=== PATIENT | male | born 1965 | race Two or more races ===

== ENCOUNTER 2017-05-19 20:39 | Inpatient (IN) | payer SELFPAY ==
[2017-05-19] MEDS ORDERED: TORADOL 60 MG VIAL IM ONE (21:13)
[2017-05-19] MEDS ORDERED: TORADOL 60 MG VIAL ONE (21:15)
--- NOTE | 2017-05-19 21:29 | DR.GENAD ---
HPI - PCP Primary Care Physician: RACHEL - HPI Comment HPI Comment: OBVIOUS DEFORMITY PRESENT. - Complaint/Symptoms Chief Complaint Doctors Comments: RIGHT ANKLE AND FOOT INJURY AT HOME TONIGHT. FELL ON THE STEPS. Chief Complaint:: PATIENT FELL ON STEPS AT HOME AND HURT RIGHT FOOT - Nurses notes reviewed Nurses Notes Review: Yes - Source History Provided: Patient, Family Member - Mode of Arrival Mode of Arrival: Wheelchair - Timing Onset of Chief Complaint: 05/19/17 Came on: Suddenly - Duration Duration: Constant Duration: Hours - Severity Severity: Moderate PMH - PMH Past Medical History: No Past Surgical History: No - Family History History of Family Medical Conditions: No - Social History Alcohol Use: DAILY Do you use any recreational Drugs:: No Lives With: Family Lives Where: Home - infectious screening In the last 2 months have you had wt loss of >10#?: NO Have you had fever, night sweats or hemotysis?: No Have you traveled outside the country in the last 6 months?: No Isolation: Standard ROS - Review of Systems Constitutional: No Symptoms Reported Eyes: No Symptoms Reported ENTM: No Symptoms Reported Respiratoy: No Symptoms Reported Cardiovascular: No Symptoms Reported Gastrointestinal/Abdominal: No Symptoms Reported Genitourinary: No Symptoms Reported Neurological: No Symptoms Reported Musculoskeletal: Right, Ankle, Foot Integumentary: Bruises Hematologic/Lymphatic: No Symptoms Reported Endocrine: No Symptoms Reported All Other Systems: Reviewed and Negative PE - Vital Signs Vitals: Temperature 98.0 F Pulse Rate 88 Respiratory Rate 20 Blood Pressure 143/80 O2 Sat by Pulse Oximetry 100 - General Limitations: No Limitations General Appearance: Alert - Head Head Exam: Normal Inspection - Eyes Eye exam: Normal Appearance - ENT ENT Exam: Normal External Ear Exam External Ear Exam: Normal External Inspection TM/Canal Exam: Bilateral Normal Nose Exam: Normal Nose Exam Mouth Exam: Normal Inspection Throat Exam: Normal Inspection - Neck Neck Exam: Normal Inspection - Chest Chest Inspection: Symmetric Chest Wall Rise - Respiratory Respiratory Exam: Normal Lung Sounds Bilat Respiratory Exam: Bilateral Clear to Auscultation - Cardiovascular Cardiovascular Exam: Regular Rate, Normal Rhythm, Normal Heart Sounds - Abdominal Exam Abdominal Exam: Normal Bowel Sounds, Soft. negative: Tenderness - Extremities Extremities Exam: Tenderness (RT ANKLE AND FOOT), Joint Swelling (RT ANKLE AND FOOT.) - Back Back Exam: Normal Inspection - Neurologic Neurological Exam: Alert, Oriented X3 - Psychiatric Psychiatric Exam: Other (ALCOHOL SCENT ON BREATH.) - Skin Skin Exam: Erythema MDM - Additional Information Additional Information Obtained From: Family - Differential Diagnosis Differential Diagnosis: FRACTURE, CONTUSION, SPRAIN RT ANKLE AND FOOT. Course - Treatment Treatment: SEE ORDERS. MEDS FOR PAIN GIVEN IN ED. - Consultation Consultation Comments: DISCUSS PATIENT WITH DR. MERIDA. HE WILL ADMIT PATIENT. DR. EASTMAN, ORTHO TO CONSULT. - Education/Counseling Education/Counseling: Patient, Education Educated On: Diagnosis ROR - Labs Reviewed Laboratory Results Reviewed?: Yes Result Diagrams: 05/19/17 23:34 05/19/17 23:34 - XRAY XRAY Interpreted by: Radiologist XRAY Findings: REPORT DISCUSS WITH PATIENT AND HIS FAMILLY. - EKG Rhythm: NSR (EKG NOTED.) - Diagnosis Discharge Problem: Alcohol use Trimalleolar fracture of ankle, closed Qualifiers: Encounter type: initial encounter Laterality: right Qualified Code(s): S82.851A - Displaced trimalleolar fracture of right lower leg, initial encounter for closed fracture Subluxation of ankle joint Qualifiers: Encounter type: initial encounter Laterality: right Qualified Code(s): S93.01XA - Subluxation of right ankle joint, initial encounter - Discharge Plan Disposition: ADMITTED INPATIENT Condition: Stable - Follow ups/Referrals - Instructions
--- NOTE | 2017-05-19 22:10 | RAD ---
HISTORY: 51-year-old male status post fall down stairs with right ankle pain. Study: Three views right ankle. Comparison: None. Findings: Comminuted trimalleolar fracture with lateral subluxation of the tibiotalar joint with expected surro unding edema. Remaining imaged osseous structures are intact and joint spaces are congruent. Vascular calcifications are present. IMPRESSION: 1. Comminuted trimalleolar fracture with lateral subluxation of the tibiotalar joint and surrounding edema. Reported By:
[2017-05-19 23:44] LABS: BASOPHILS # (AUTO) 0.1 X10^3/uL (0.0-0.1); BASOPHILS % (AUTO) 1.3 % (0.2-1.0); EOSINOPHILS % (AUTO) 0.5 % (0.9-2.9); HEMATOCRIT 31.4 % (42.0-54.0); HEMOGLOBIN 11.2 g/dL (13.5-18.0); LYMPHOCYTES # (AUTO) 1.9 X10^3/uL (1.3-2.9); LYMPHOCYTES % (AUTO) 33.1 % (21.0-51.0); MEAN CORPUSCULAR HEMOGLOBIN 37.7 pg (27.0-34.0); MEAN CORPUSCULAR HGB CONC 35.6 g/dL (33.0-35.0); MEAN CORPUSCULAR VOLUME 105.9 fL (80.0-100.0); MEAN PLATELET VOLUME 9.3 fL (7.4-11.0); MONOCYTES # (AUTO) 0.4 x10^3/uL (0.3-0.8); MONOCYTES % (AUTO) 7.5 % (0.0-13.0); NEUTROPHILS # (AUTO) 3.4 x10^3/uL (2.2-4.8); NEUTROPHILS % (AUTO) 57.6 % (42.0-75.0); PLATELET COUNT 81 X10^3/uL (150.0-450.0); RED BLOOD COUNT 2.96 X10^6/uL (4.7-6.0); RED CELL DISTRIBUTION WIDTH 12.7 % (11.6-16.5); WHITE BLOOD COUNT 5.8 X10^3/uL (3.6-10.0)
[2017-05-19] MEDS: NS 1000 ML 1,000 ML IV SCH (23:53)
[2017-05-19 23:59] LABS: ALANINE AMINOTRANSFERASE 60 Units/L (12-78); ALBUMIN 3.5 g/dL (3.4-5.0); ALKALINE PHOSPHATASE 92 Units/L (46-116); ASPARTATE AMINO TRANSFERASE 98 Units/L (15-37); BLOOD ALCOHOL 262 mg/dL (0-19.9); BLOOD UREA NITROGEN 5 mg/dL (7-18); CALCIUM 8.1 mg/dL (8.5-10.1); CARBON DIOXIDE 22.9 mmol/L (21-32); CHLORIDE 95 mmol/L (98-107); CREATININE 0.65 mg/dL (0.70-1.30); SODIUM 133 mmol/L (136-145); TOTAL PROTEIN 7.7 g/dL (6.4-8.2); eGFR BLACK RACES > 60 (>60); eGFR NON BLACK RACES > 60 (>60)
[2017-05-20 00:04] LABS: PLATELET MORPHOLOGY COMMENT NORMAL (NORMAL)
[2017-05-20] MEDS ORDERED: MORPHINE SULFATE INJ 4 MG IVP ONE (00:05)
[2017-05-20] MEDS ORDERED: ZOFRAN INJ 4 MG VIAL IVP ONE (00:05)
[2017-05-20] MEDS ORDERED: ZOFRAN INJ 4 MG VIAL ONE (00:07)
[2017-05-20] MEDS ORDERED: MORPHINE SULFATE INJ 4 MG ONE (00:07)
[2017-05-20 02:06] VITALS: BMI 21.6
[2017-05-20] MEDS ORDERED: ZOFRAN INJ 4 MG VIAL IVP PRN (02:22)
--- NOTE | 2017-05-20 03:08 | RAD ---
HISTORY: 51-year-old male, preoperative examination. Study: Frontal view of the chest. Comparison: None. Findings: The trachea is midline. The cardiac silhouette is unremarkable. The lungs are clear without focal c onsolidation, effusion or pneumothorax. Soft tissues are unremarkable. Osseous structures are unrema rkable. IMPRESSION: 1. No acute cardiopulmonary disease. Reported By:
--- NOTE | 2017-05-20 03:19 | RAD ---
HISTORY: 51-year-old male status post reduction of fracture dislocation right ankle. Study: Frontal lateral views of the right ankle. Comparison: Right ankle radiographs 05/19/2017. Findings: Successful interval reduction of midfoot dislocation with re-demonstration of trimalleolar fracture a nd surrounding edema. IMPRESSION: 1. Successful reduction of midfoot dislocation. Reported By:
[2017-05-20] MEDS: MORPHINE SULFATE INJ 2 MG INJ IVP PRN ×3 (11:15→18:04)
[2017-05-20] MEDS: NS 1000 ML 1,000 ML IV SCH ×3 (11:57→20:30)
--- NOTE | 2017-05-20 15:10 | DR.H&P ---
H&P - History & Physical for Day of: H&P Date: 05/20/17 - Chief Complaint Chief Complaint: FALL RIGHT ANKLE PAIN - Allergies Allergies/Adverse Reactions: Allergies Allergy/AdvReac Type Severity Reaction Status Date / Time No Known Drug Allergies Allergy Verified 05/19/17 21:11 - History of Present Illness History of Present Illness: 51 HM ER ADMISSION WITH RIGHT ANKLE FRACTURE REQUIRING REDUCTION. PT ADMITTED FOR PAIN CONTROL AND ORTHO CONSULT. PT DENIES ANY PMH. PT STATES HE DRINKS ETOH OCCASSIONALLY - Past Medical History Past Medical History: denies: CHF, Coronary Artery Disease, Diabetes, Hypertension - Past Surgical History Surgical History: Unknown - Social History Does patient currently use any type of tobacco product: Yes Have you used tobacco products in the last 12 months: Yes Type of Tobacco Use: Cigarettes Alcohol Use: DAILY Drug Use: None - Medications Home Medications: NK [NK] 05/20/17 [History Confirmed 05/20/17] - Review of Systems Constitutional: No Symptoms Reported Eyes: No Symptoms Reported ENT: No Symptoms Reported Respiratory: No Symptoms Reported Cardiovascular: No Symptoms Reported Gastrointestinal: Nausea Genitourinary: No Symptoms Reported Musculoskeletal: Leg Pain, Foot Pain Skin: No Symptoms Reported Neurological: No Symptoms Reported - Physical Exam Vital Signs: Temperature 99.1 F Pulse Rate [Right Brachial] 72 Pulse Rate 88 Respiratory Rate 18 Blood Pressure [Right Arm] 153/74 Blood Pressure 143/80 O2 Sat by Pulse Oximetry 99 Oriented: Normal Eyes: Normal Ear: Normal Nose: Normal Throat: Normal Respiratory: Clear Throughout : Normal Auscultation: Bowel Sounds: Normal Palpation: Normal Tenderness: Normal Skin: Tender, Bruising Musculoskeletal: Right, Ankle, Foot Psychiatric: Anxiety Speech Pattern: Clear, Appropriate - Assessment/Plan (1) Subluxation of ankle joint Qualifiers: Encounter type: initial encounter Laterality: right Qualified Code(s): S93.01XA - Subluxation of right ankle joint, initial encounter Status: Acute Plan: PAIN CONTROL, ORTHO CONSULT (2) Trimalleolar fracture of ankle, closed Qualifiers: Encounter type: initial encounter Laterality: right Qualified Code(s): S82.851A - Displaced trimalleolar fracture of right lower leg, initial encounter for closed fracture Status: Acute
--- NOTE | 2017-05-20 16:37 | CT ---
CT right ankle without contrast Indication: Post reduction right ankle fracture Comparison: 05/20/2017 radiograph and 05/19/2017 radiograph. Technique: Helical images through the right ankle without contrast. Coronal and sagittal reformats pr ovided Findings: There is mild midfoot degenerative change of the talonavicular joint. Calcaneus is intact. Sinus tarsi fat is preserved. There is oblique comminuted lateral malleolus fracture and comminuted medial malleolus fracture displ aced caudally. The distal fibula is displaced laterally at the tibiotalar joint is laterally subluxed see coronal image 26. This is compatible with either eversion type injury. There is posterior malleo renny/STIR shows fracture seen on sagittal image 27 with posterior subluxation of the tibiotalar joint as well. Osteochondral fragments are seen in the anterior joint space and lateral gutter. Talar dome appears intact. Intraarticular extension of both the medial malleolus posterior malleolus fractures t o the tibial plafond noted. The fracture fibula metaphysis impacts on the lateral talar dome on coron al image 22. Within the limits of CT, the extensor tendons, Achilles tendons and peroneal tendons appear intact. F lexor tendons are intact, with the posterior tibialis tendon approaches fracture sites. There is no c urrent impingement convincingly demonstrated. Anterior talofibular ligament is indistinct, possibly t orn. Presumably the tibia fibular ligaments are disrupted. Deltoid ligament injury cannot be excluded . Impression: 1. Comminuted trimalleolar fracture as above. 2. Persistent lateral and posterior subluxation of the talus in relation to the tibia. Scattered intr a-articular fracture fragments noted, with the fibula metaphysis fracture impacting lateral talar dom e currently. Reported By:
[2017-05-20] MEDS: LIBRIUM PO SCH (20:31)
[2017-05-20] MEDS ORDERED: LIBRIUM PO PRN (21:00)
[2017-05-20] MEDS: PHENERGAN INJ 25 MG IV PRN (23:13)
[2017-05-21] MEDS: NS 1000 ML 1,000 ML IV SCH ×3 (02:54→20:14)
[2017-05-21] MEDS: MORPHINE SULFATE INJ 2 MG INJ IVP PRN ×3 (05:58→19:34)
[2017-05-21 06:09] LABS: BASOPHILS # (AUTO) 0.1 X10^3/uL (0.0-0.1); EOSINOPHILS # (AUTO) 0.1 x10^3/uL (0.0-0.2); EOSINOPHILS % (AUTO) 1.1 % (0.9-2.9); HEMATOCRIT 29.6 % (42.0-54.0); HEMOGLOBIN 10.6 g/dL (13.5-18.0); LYMPHOCYTES # (AUTO) 1.3 X10^3/uL (1.3-2.9); LYMPHOCYTES % (AUTO) 24.5 % (21.0-51.0); MEAN CORPUSCULAR HEMOGLOBIN 37.7 pg (27.0-34.0); MEAN CORPUSCULAR HGB CONC 35.8 g/dL (33.0-35.0); MEAN CORPUSCULAR VOLUME 105.3 fL (80.0-100.0); MEAN PLATELET VOLUME 10.4 fL (7.4-11.0); MONOCYTES # (AUTO) 0.7 x10^3/uL (0.3-0.8); MONOCYTES % (AUTO) 13.2 % (0.0-13.0); NEUTROPHILS # (AUTO) 3.3 x10^3/uL (2.2-4.8); NEUTROPHILS % (AUTO) 60.2 % (42.0-75.0); PLATELET COUNT 83 X10^3/uL (150.0-450.0); RED BLOOD COUNT 2.81 X10^6/uL (4.7-6.0); RED CELL DISTRIBUTION WIDTH 13.1 % (11.6-16.5); WHITE BLOOD COUNT 5.4 X10^3/uL (3.6-10.0)
[2017-05-21 06:23] LABS: ALANINE AMINOTRANSFERASE 49 Units/L (12-78); ALBUMIN 3.3 g/dL (3.4-5.0); ALKALINE PHOSPHATASE 92 Units/L (46-116); ASPARTATE AMINO TRANSFERASE 65 Units/L (15-37); BLOOD UREA NITROGEN 4 mg/dL (7-18); CALCIUM 8.7 mg/dL (8.5-10.1); CARBON DIOXIDE 30.2 mmol/L (21-32); CHLORIDE 98 mmol/L (98-107); COR CA(FOR HYPOALB) 9.3 mg/dL (8.5-10.1); CREATININE 0.63 mg/dL (0.70-1.30); SODIUM 136 mmol/L (136-145); TOTAL PROTEIN 7.5 g/dL (6.4-8.2); eGFR BLACK RACES > 60 (>60); eGFR NON BLACK RACES > 60 (>60)
[2017-05-21] MEDS ORDERED: K-LYTE EFFERVESCENT PO PRN (06:30)
[2017-05-21] MEDS ORDERED: K-RIDER 10 MEQ/NS 100 ML 10 MEQ/100 ML BAG IV PRN (06:30)
[2017-05-21] MEDS ORDERED: MAG-OX TAB PO PRN (06:30)
[2017-05-21] MEDS ORDERED: POTASSIUM CHLORIDE LIQ 20 MEQ UDC PO PRN (06:30)
[2017-05-21] MEDS ORDERED: MAGNESIUM SULFATE 1 GM/100 mL PREMIX 1 GM/100 ML BAG IV PRN (06:30)
[2017-05-21 06:42] LABS: HYPOCHROMASIA 1+; PLATELET MORPHOLOGY COMMENT NORMAL (NORMAL)
[2017-05-21] MEDS: POTASSIUM CHL 60 MEQ/NS 0.45% 500 ML IV PRN (06:46)
[2017-05-21] MEDS: POTASSIUM CHL 40 MEQ/NS 0.45% 500 ML IV PRN (06:55)
[2017-05-21] MEDS: LIBRIUM PO SCH ×2 (08:58→20:14)
[2017-05-21] MEDS: TYLENOL 325 MG TAB PO PRN (20:44)
[2017-05-22] MEDS: NS 1000 ML 1,000 ML IV SCH ×3 (00:20→12:21)
[2017-05-22] MEDS: MORPHINE SULFATE INJ 2 MG INJ IVP PRN ×2 (01:20→08:46)
[2017-05-22] MEDS: NICOTINE PATCH TD SCH ×3 (04:49→08:49)
[2017-05-22 06:44] LABS: BASOPHILS # (AUTO) 0.1 X10^3/uL (0.0-0.1); BASOPHILS % (AUTO) 0.7 % (0.2-1.0); EOSINOPHILS % (AUTO) 0.1 % (0.9-2.9); HEMATOCRIT 27.2 % (42.0-54.0); HEMOGLOBIN 9.8 g/dL (13.5-18.0); LYMPHOCYTES # (AUTO) 1.3 X10^3/uL (1.3-2.9); LYMPHOCYTES % (AUTO) 14.8 % (21.0-51.0); MEAN CORPUSCULAR HEMOGLOBIN 37.8 pg (27.0-34.0); MEAN CORPUSCULAR HGB CONC 35.9 g/dL (33.0-35.0); MEAN CORPUSCULAR VOLUME 105.3 fL (80.0-100.0); MONOCYTES # (AUTO) 1.1 x10^3/uL (0.3-0.8); MONOCYTES % (AUTO) 12.8 % (0.0-13.0); NEUTROPHILS # (AUTO) 6.2 x10^3/uL (2.2-4.8); NEUTROPHILS % (AUTO) 71.6 % (42.0-75.0); PLATELET COUNT 81 X10^3/uL (150.0-450.0); RED BLOOD COUNT 2.58 X10^6/uL (4.7-6.0); RED CELL DISTRIBUTION WIDTH 12.7 % (11.6-16.5); WHITE BLOOD COUNT 8.7 X10^3/uL (3.6-10.0)
[2017-05-22 06:57] LABS: ALANINE AMINOTRANSFERASE 42 Units/L (12-78); ALBUMIN 3.4 g/dL (3.4-5.0); ALKALINE PHOSPHATASE 87 Units/L (46-116); ASPARTATE AMINO TRANSFERASE 52 Units/L (15-37); BLOOD UREA NITROGEN 5 mg/dL (7-18); CALCIUM 9.2 mg/dL (8.5-10.1); CARBON DIOXIDE 26.2 mmol/L (21-32); CHLORIDE 98 mmol/L (98-107); CREATININE 0.65 mg/dL (0.70-1.30); SODIUM 135 mmol/L (136-145); TOTAL PROTEIN 7.8 g/dL (6.4-8.2); eGFR BLACK RACES > 60 (>60); eGFR NON BLACK RACES > 60 (>60)
[2017-05-22 07:00] LABS: PLATELET MORPHOLOGY COMMENT NORMAL (NORMAL)
[2017-05-22] MEDS: MILK OF MAGNESIA PO SCH ×2 (08:46→20:44)
[2017-05-22] MEDS: COLACE CAP 100 MG PO SCH ×2 (08:46→20:43)
[2017-05-22] MEDS: LIBRIUM PO SCH ×3 (08:46→20:44)
[2017-05-22] MEDS: ATIVAN INJ 2 MG VIAL IVP PRN ×2 (11:30→23:57)
[2017-05-22] MEDS: ATIVAN INJ 2 MG VIAL IVP SCH (12:18)
[2017-05-22] MEDS: HALDOL INJ IM SCH (12:19)
[2017-05-22] MEDS: BENADRYL INJ 50 MG VIAL IV SCH (12:20)
[2017-05-22] MEDS: TYLENOL 325 MG TAB PO PRN (23:56)
[2017-05-23] MEDS: NS 1000 ML 1,000 ML IV SCH ×5 (00:32→22:52)
[2017-05-23] MEDS: LIBRIUM PO SCH ×4 (02:56→22:00)
[2017-05-23 06:19] LABS: BASOPHILS # (AUTO) 0.1 X10^3/uL (0.0-0.1); BASOPHILS % (AUTO) 1.1 % (0.2-1.0); EOSINOPHILS # (AUTO) 0.1 x10^3/uL (0.0-0.2); EOSINOPHILS % (AUTO) 1.2 % (0.9-2.9); HEMATOCRIT 26.5 % (42.0-54.0); HEMOGLOBIN 9.4 g/dL (13.5-18.0); LYMPHOCYTES # (AUTO) 1.6 X10^3/uL (1.3-2.9); LYMPHOCYTES % (AUTO) 21.2 % (21.0-51.0); MEAN CORPUSCULAR HGB CONC 35.6 g/dL (33.0-35.0); MEAN CORPUSCULAR VOLUME 106.7 fL (80.0-100.0); MEAN PLATELET VOLUME 10.5 fL (7.4-11.0); MONOCYTES # (AUTO) 1.1 x10^3/uL (0.3-0.8); MONOCYTES % (AUTO) 14.2 % (0.0-13.0); NEUTROPHILS # (AUTO) 4.7 x10^3/uL (2.2-4.8); NEUTROPHILS % (AUTO) 62.3 % (42.0-75.0); PLATELET COUNT 82 X10^3/uL (150.0-450.0); RED BLOOD COUNT 2.48 X10^6/uL (4.7-6.0); RED CELL DISTRIBUTION WIDTH 12.9 % (11.6-16.5); WHITE BLOOD COUNT 7.6 X10^3/uL (3.6-10.0)
[2017-05-23 06:28] LABS: PLATELET MORPHOLOGY COMMENT NORMAL (NORMAL)
[2017-05-23 06:44] LABS: ALANINE AMINOTRANSFERASE 33 Units/L (12-78); ALBUMIN 2.9 g/dL (3.4-5.0); ALKALINE PHOSPHATASE 81 Units/L (46-116); ASPARTATE AMINO TRANSFERASE 46 Units/L (15-37); BLOOD UREA NITROGEN 6 mg/dL (7-18); CALCIUM 8.6 mg/dL (8.5-10.1); CARBON DIOXIDE 22.5 mmol/L (21-32); CHLORIDE 101 mmol/L (98-107); COR CA(FOR HYPOALB) 9.5 mg/dL (8.5-10.1); CREATININE 0.56 mg/dL (0.70-1.30); SODIUM 138 mmol/L (136-145); TOTAL PROTEIN 7.2 g/dL (6.4-8.2); eGFR BLACK RACES > 60 (>60); eGFR NON BLACK RACES > 60 (>60)
[2017-05-23] MEDS: MILK OF MAGNESIA PO SCH ×2 (08:57→21:47)
[2017-05-23] MEDS: COLACE CAP 100 MG PO SCH ×2 (08:57→21:47)
[2017-05-23] MEDS: NICOTINE PATCH TD SCH (08:58)
[2017-05-23] MEDS: ATIVAN INJ 2 MG VIAL IVP PRN (08:58)
--- NOTE | 2017-05-23 09:19 | DR.CONSULT ---
Consult - Consultation for Day of: Date: 05/23/17 - Chief Complaint Chief Complaint: rt ankle fracture dislocation. pt a kco alcohol addiction/ abuse. he was drunk the day he presented to the ER. He and his son who accompined him to the ER report that he drinks hevily everyday. he is currently unemployed. I was consulted over the phone and it was a tri malleolar fracture. there was subluxation of the ankle joint. It was reduced in ER and the reduction was satisfactory. follow up CT showed a tri mall fracture. - Allergies Allergies/Adverse Reactions: Allergies Allergy/AdvReac Type Severity Reaction Status Date / Time No Known Drug Allergies Allergy Verified 05/19/17 21:11 - History of Present Illness History of Present Illness: he was evaluated by the anestesia team and he had full blown Delerium tremens and alcohol withdrawal. - Past Medical History Past Medical History: denies: CHF, Coronary Artery Disease, Diabetes, Hypertension - Past Surgical History Surgical History: Unknown - Social History Does patient currently use any type of tobacco product: Yes Have you used tobacco products in the last 12 months: Yes Type of Tobacco Use: Cigarettes Alcohol Use: DAILY Drug Use: None - Medications Home Medications: NK [NK] 05/20/17 [History Confirmed 05/20/17] - Physical Exam Vital Signs: Temperature 98.7 F Pulse Rate [Right Brachial] 105 Pulse Rate 88 Respiratory Rate 18 Blood Pressure [Left Arm] 174/90 Blood Pressure [Right Arm] 147/74 Blood Pressure 143/80 O2 Sat by Pulse Oximetry 100 - Plan Plan: ORIF tri malleolar fracture when he is cleared by anesthesia and medical for wong.
--- NOTE | 2017-05-23 12:24 | PCM.PROG ---
Progress Note - Progress Note for Day of Date: 05/23/17 - Subjective Subjective: posted for surgery tuesday as cleared by anesthesia and medical. - Past Medical Family Social History Allergies: Allergies No Known Drug Allergies Allergy (Verified 05/19/17 21:11) - Vital Signs and I&O's Vital Signs: Temperature 98.4 F Pulse Rate [Right Brachial] 96 Pulse Rate 88 Respiratory Rate 20 Blood Pressure [Left Arm] 157/84 Blood Pressure [Right Arm] 147/74 Blood Pressure 143/80 O2 Sat by Pulse Oximetry 92 Intake and Output: Intake & Output 05/21/17 05/22/17 05/23/17 05/24/17 11:59 11:59 11:59 11:59 Intake Total 2082 104 3061 Output Total 3389 0979 800 Balance -1300 -3930 2261 - Physical Exam Oriented: Normal Eyes: Normal Ear: Normal Nose: Normal Throat: Normal : Normal Auscultation: Bowel Sounds: Normal Tenderness: Normal Skin: Tender, Bruising Musculoskeletal: Right, Ankle, Foot Psychiatric: Anxiety Speech Pattern: Clear, Inappropriate - Laboratory and Diagnostics Result Diagrams: 05/23/17 05:15 05/23/17 05:15 Labs: 05/21/17 19:41 Blood Blood Culture - Preliminary 05/21/17 19:40 Blood Blood Culture - Preliminary Laboratory WBC 7.6 X10^3/uL (3.6-10.0) 05/23/17 05:15 RBC 2.48 X10^6/uL (4.7-6.0) L 05/23/17 05:15 Hgb 9.4 g/dL (13.5-18.0) L 05/23/17 05:15 Hct 26.5 % (42.0-54.0) L 05/23/17 05:15 MCV 106.7 fL (80.0-100.0) H 05/23/17 05:15 MCH 38.0 pg (27.0-34.0) H 05/23/17 05:15 MCHC 35.6 g/dL (33.0-35.0) H 05/23/17 05:15 RDW 12.9 % (11.6-16.5) 05/23/17 05:15 Plt Count 82 X10^3/uL (150.0-450.0) L 05/23/17 05:15 Plt Count Comment Adequate (ADEQUATE) 05/23/17 05:15 MPV 10.5 fL (7.4-11.0) 05/23/17 05:15 Neut % 62.3 % (42.0-75.0) 05/23/17 05:15 Lymph % 21.2 % (21.0-51.0) 05/23/17 05:15 [place] % 14.2 % (0.0-13.0) H 05/23/17 05:15 Eos % 1.2 % (0.9-2.9) 05/23/17 05:15 Baso % 1.1 % (0.2-1.0) H 05/23/17 05:15 Neut # 4.7 x10^3/uL (2.2-4.8) 05/23/17 05:15 Lymph # 1.6 X10^3/uL (1.3-2.9) 05/23/17 05:15 [place] # 1.1 x10^3/uL (0.3-0.8) H 05/23/17 05:15 Eos # 0.1 x10^3/uL (0.0-0.2) 05/23/17 05:15 Baso # 0.1 X10^3/uL (0.0-0.1) 05/23/17 05:15 Absolute Nucleated RBC 0.0 /100WBC 05/23/17 05:15 Plt Morphology Comment Normal (NORMAL) 05/23/17 05:15 RBC Morphology Abnormal (NORMAL) 05/23/17 05:15 Hypochromasia 1+ A 05/21/17 05:58 Macrocytosis 1+ A 05/23/17 05:15 INR Target Range - 05/19/17 23:34 INR 1.13 (0.8-1.3) 05/19/17 23:34 PTT 32.3 SECONDS (22.9-36.5) 05/19/17 23:34 PTT Comment - 05/19/17 23:34 Sodium 138 mmol/L (136-145) 05/23/17 05:15 Corrected Sodium TNP 05/23/17 05:15 Potassium 3.3 mmol/L (3.5-5.1) L 05/23/17 05:15 Chloride 101 mmol/L (98-107) 05/23/17 05:15 Carbon Dioxide 22.5 mmol/L (21-32) 05/23/17 05:15 BUN 6 mg/dL (7-18) L 05/23/17 05:15 Creatinine 0.56 mg/dL (0.70-1.30) L 05/23/17 05:15 Est GFR (MDRD) Af Amer > 60 (>60) 05/23/17 05:15 Est GFR (MDRD) Non-Af > 60 (>60) 05/23/17 05:15 Glucose 79 mg/dL (65-99) 05/23/17 05:15 Calcium 8.6 mg/dL (8.5-10.1) 05/23/17 05:15 Corrected Calcium 9.5 mg/dL (8.5-10.1) 05/23/17 05:15 Magnesium 1.7 mg/dL (1.7-2.9) 05/21/17 05:12 Total Bilirubin 1.00 mg/dL (0.2-1.0) 05/23/17 05:15 AST 46 Units/L (15-37) H 05/23/17 05:15 ALT 33 Units/L (12-78) 05/23/17 05:15 Alkaline Phosphatase 81 Units/L (46-116) 05/23/17 05:15 Total Protein 7.2 g/dL (6.4-8.2) 05/23/17 05:15 Albumin 2.9 g/dL (3.4-5.0) L 05/23/17 05:15 Globulin 4.3 g/dL (2.5-4.5) 05/23/17 05:15 Albumin/Globulin Ratio 0.7 Ratio (1.1-2.1) L 05/23/17 05:15 Ethyl Alcohol mg/dL 262 mg/dL (0-19.9) H 05/19/17 23:34 Blood Type A POSITIVE 05/19/17 23:55 Antibody Screen Negative 05/19/17 23:55 - Plan (1) Trimalleolar fracture of ankle, closed Status: Acute Qualifiers: Encounter type: initial encounter Laterality: right Qualified Code(s): S82.851A - Displaced trimalleolar fracture of right lower leg, initial encounter for closed fracture Plan: ORIF ankle tuesday. pt is alcoholic and I have serious concerns of his compliance with non weight bearing status. I may also consider ankle arthrodesis nail keeping in mind his non compliance issues and chronic alcoholic issues.
[2017-05-23] MEDS ORDERED: MILK OF MAGNESIA PO PRN (13:40)
[2017-05-23] MEDS ORDERED: KAOPECTATE (NEW FORMULA) PO PRN (13:40)
[2017-05-23] MEDS ORDERED: MAALOX or MYLANTA PO PRN (13:40)
[2017-05-23] MEDS: MAGNESIUM SULFATE 50% INJ IM SCH ×2 (14:11→21:48)
[2017-05-23 14:19] LABS: BASOPHILS # (AUTO) 0.1 X10^3/uL (0.0-0.1); BASOPHILS % (AUTO) 0.9 % (0.2-1.0); EOSINOPHILS # (AUTO) 0.1 x10^3/uL (0.0-0.2); EOSINOPHILS % (AUTO) 1.2 % (0.9-2.9); HEMATOCRIT 25.1 % (42.0-54.0); LYMPHOCYTES # (AUTO) 1.3 X10^3/uL (1.3-2.9); LYMPHOCYTES % (AUTO) 17.1 % (21.0-51.0); MEAN CORPUSCULAR HEMOGLOBIN 37.9 pg (27.0-34.0); MEAN CORPUSCULAR HGB CONC 35.8 g/dL (33.0-35.0); MEAN CORPUSCULAR VOLUME 105.7 fL (80.0-100.0); MEAN PLATELET VOLUME 9.6 fL (7.4-11.0); MONOCYTES % (AUTO) 12.8 % (0.0-13.0); NEUTROPHILS # (AUTO) 5.2 x10^3/uL (2.2-4.8); PLATELET COUNT 112 X10^3/uL (150.0-450.0); RED BLOOD COUNT 2.37 X10^6/uL (4.7-6.0); WHITE BLOOD COUNT 7.6 X10^3/uL (3.6-10.0)
[2017-05-23 14:27] LABS: PLATELET MORPHOLOGY COMMENT NORMAL (NORMAL)
[2017-05-23] MEDS: PHENOBARBITAL TAB 30 MG (32.4MG) PO SCH ×2 (18:15→21:47)
[2017-05-23] MEDS: TYLENOL 325 MG TAB PO PRN (21:52)
[2017-05-23] MEDS: AMBIEN PO SCH (21:52)
[2017-05-24] MEDS: LIBRIUM PO SCH ×4 (03:42→21:20)
[2017-05-24] MEDS: MAGNESIUM SULFATE 50% INJ IM SCH ×3 (05:25→21:21)
[2017-05-24 06:22] LABS: BASOPHILS # (AUTO) 0.1 X10^3/uL (0.0-0.1); BASOPHILS % (AUTO) 0.9 % (0.2-1.0); EOSINOPHILS # (AUTO) 0.1 x10^3/uL (0.0-0.2); EOSINOPHILS % (AUTO) 1.8 % (0.9-2.9); HEMATOCRIT 24.9 % (42.0-54.0); HEMOGLOBIN 8.9 g/dL (13.5-18.0); LYMPHOCYTES # (AUTO) 1.6 X10^3/uL (1.3-2.9); LYMPHOCYTES % (AUTO) 22.4 % (21.0-51.0); MEAN CORPUSCULAR HEMOGLOBIN 37.8 pg (27.0-34.0); MEAN CORPUSCULAR HGB CONC 35.6 g/dL (33.0-35.0); MEAN CORPUSCULAR VOLUME 106.3 fL (80.0-100.0); MEAN PLATELET VOLUME 9.1 fL (7.4-11.0); MONOCYTES # (AUTO) 0.9 x10^3/uL (0.3-0.8); MONOCYTES % (AUTO) 13.3 % (0.0-13.0); NEUTROPHILS # (AUTO) 4.3 x10^3/uL (2.2-4.8); NEUTROPHILS % (AUTO) 61.6 % (42.0-75.0); PLATELET COUNT 141 X10^3/uL (150.0-450.0); RED BLOOD COUNT 2.34 X10^6/uL (4.7-6.0); RED CELL DISTRIBUTION WIDTH 12.7 % (11.6-16.5); WHITE BLOOD COUNT 6.9 X10^3/uL (3.6-10.0)
[2017-05-24 06:51] LABS: ALANINE AMINOTRANSFERASE 36 Units/L (12-78); ALBUMIN 2.7 g/dL (3.4-5.0); ALKALINE PHOSPHATASE 79 Units/L (46-116); ASPARTATE AMINO TRANSFERASE 51 Units/L (15-37); BLOOD UREA NITROGEN 4 mg/dL (7-18); CALCIUM 8.5 mg/dL (8.5-10.1); CARBON DIOXIDE 26.3 mmol/L (21-32); CHLORIDE 102 mmol/L (98-107); COR CA(FOR HYPOALB) 9.5 mg/dL (8.5-10.1); CREATININE 0.56 mg/dL (0.70-1.30); SODIUM 138 mmol/L (136-145); TOTAL PROTEIN 7.1 g/dL (6.4-8.2); eGFR BLACK RACES > 60 (>60); eGFR NON BLACK RACES > 60 (>60)
[2017-05-24 06:58] LABS: HYPOCHROMASIA SLIGHT; PLATELET MORPHOLOGY COMMENT NORMAL (NORMAL)
[2017-05-24] MEDS: MILK OF MAGNESIA PO SCH ×2 (09:29→21:22)
[2017-05-24] MEDS: PHENOBARBITAL TAB 30 MG (32.4MG) PO SCH ×4 (09:29→21:20)
[2017-05-24] MEDS: MORPHINE SULFATE INJ 2 MG INJ IVP PRN (09:29)
[2017-05-24] MEDS: NICOTINE PATCH TD SCH (09:30)
[2017-05-24] MEDS: COLACE CAP 100 MG PO SCH ×2 (09:34→21:21)
[2017-05-24] MEDS: THIAMINE HCL INJ IM SCH (09:37)
[2017-05-24] MEDS: NS 1000 ML 1,000 ML IV SCH ×2 (09:39→23:13)
[2017-05-24] MEDS: AMBIEN PO SCH (21:20)
[2017-05-24] MEDS: POTASSIUM CHL 60 MEQ/NS 0.45% 500 ML IV PRN (21:20)
[2017-05-24] MEDS: ATIVAN INJ 2 MG VIAL IVP PRN (23:08)
[2017-05-25] MEDS ORDERED: HALDOL INJ IM ONE (01:30)
[2017-05-25] MEDS: LIBRIUM PO SCH ×4 (03:33→21:06)
[2017-05-25] MEDS: ATIVAN INJ 2 MG VIAL IVP PRN ×2 (05:41→21:07)
[2017-05-25] MEDS: MAGNESIUM SULFATE 50% INJ IM SCH (06:29)
[2017-05-25 06:53] LABS: BASOPHILS # (AUTO) 0.1 X10^3/uL (0.0-0.1); BASOPHILS % (AUTO) 0.8 % (0.2-1.0); EOSINOPHILS # (AUTO) 0.1 x10^3/uL (0.0-0.2); EOSINOPHILS % (AUTO) 1.1 % (0.9-2.9); HEMATOCRIT 26.4 % (42.0-54.0); HEMOGLOBIN 9.4 g/dL (13.5-18.0); LYMPHOCYTES # (AUTO) 1.8 X10^3/uL (1.3-2.9); LYMPHOCYTES % (AUTO) 22.5 % (21.0-51.0); MEAN CORPUSCULAR HEMOGLOBIN 37.8 pg (27.0-34.0); MEAN CORPUSCULAR HGB CONC 35.7 g/dL (33.0-35.0); MEAN PLATELET VOLUME 8.7 fL (7.4-11.0); MONOCYTES # (AUTO) 1.1 x10^3/uL (0.3-0.8); NEUTROPHILS # (AUTO) 4.8 x10^3/uL (2.2-4.8); NEUTROPHILS % (AUTO) 61.6 % (42.0-75.0); PLATELET COUNT 201 X10^3/uL (150.0-450.0); RED BLOOD COUNT 2.49 X10^6/uL (4.7-6.0); RED CELL DISTRIBUTION WIDTH 12.7 % (11.6-16.5); WHITE BLOOD COUNT 7.8 X10^3/uL (3.6-10.0)
[2017-05-25 07:04] LABS: PLATELET MORPHOLOGY COMMENT NORMAL (NORMAL)
[2017-05-25 07:08] LABS: ALANINE AMINOTRANSFERASE 44 Units/L (12-78); ALBUMIN 3.1 g/dL (3.4-5.0); ALKALINE PHOSPHATASE 91 Units/L (46-116); ASPARTATE AMINO TRANSFERASE 71 Units/L (15-37); BLOOD UREA NITROGEN 5 mg/dL (7-18); CALCIUM 8.6 mg/dL (8.5-10.1); CARBON DIOXIDE 25.2 mmol/L (21-32); CHLORIDE 101 mmol/L (98-107); COR CA(FOR HYPOALB) 9.3 mg/dL (8.5-10.1); CREATININE 0.67 mg/dL (0.70-1.30); SODIUM 136 mmol/L (136-145); TOTAL PROTEIN 7.8 g/dL (6.4-8.2); eGFR BLACK RACES > 60 (>60); eGFR NON BLACK RACES > 60 (>60)
[2017-05-25] MEDS ORDERED: MARCAINE 0.25% INJ ONE (08:14)
[2017-05-25] MEDS ORDERED: XYLOCAINE 1% and EPINEPHRINE 1:100,000 ONE (08:14)
[2017-05-25] MEDS: COLACE CAP 100 MG PO SCH ×2 (09:57→21:05)
[2017-05-25] MEDS: PHENOBARBITAL TAB 30 MG (32.4MG) PO SCH ×4 (09:57→21:07)
[2017-05-25] MEDS: THIAMINE HCL INJ IM SCH (09:58)
[2017-05-25] MEDS: MILK OF MAGNESIA PO SCH ×2 (09:59→21:09)
[2017-05-25] MEDS: NICOTINE PATCH TD SCH (09:59)
[2017-05-25 14:11] LABS: ABG ALLEN TEST POS; ABG BASE EXCESS 2.5 mmol/L (-2.0-2.0); ABG HCO3 26.3 mmol/L (22-26)
--- NOTE | 2017-05-25 16:13 | RAD ---
HISTORY: Cough, COPD Study: Single view chest Comparison:None Findings: No infiltrate, effusion or pneumothorax identified. The cardiac and mediastinal contours are within normal limits. The soft tissues are unremarkable. IMPRESSION: 1. No acute cardiopulmonary abnormality. Reported By:
[2017-05-25] MEDS: NS 1000 ML 1,000 ML IV SCH ×2 (18:19→23:01)
[2017-05-25] MEDS: AMBIEN PO SCH (21:06)
[2017-05-25] MEDS: PHENERGAN INJ 25 MG IV PRN (21:06)
[2017-05-26] MEDS: LIBRIUM PO SCH ×2 (03:58→09:41)
[2017-05-26 06:53] LABS: BASOPHILS # (AUTO) 0.1 X10^3/uL (0.0-0.1); BASOPHILS % (AUTO) 1.1 % (0.2-1.0); EOSINOPHILS # (AUTO) 0.1 x10^3/uL (0.0-0.2); EOSINOPHILS % (AUTO) 1.7 % (0.9-2.9); HEMATOCRIT 25.8 % (42.0-54.0); HEMOGLOBIN 9.2 g/dL (13.5-18.0); LYMPHOCYTES # (AUTO) 1.2 X10^3/uL (1.3-2.9); MEAN CORPUSCULAR HEMOGLOBIN 37.8 pg (27.0-34.0); MEAN CORPUSCULAR HGB CONC 35.7 g/dL (33.0-35.0); MEAN CORPUSCULAR VOLUME 105.8 fL (80.0-100.0); MEAN PLATELET VOLUME 8.2 fL (7.4-11.0); MONOCYTES # (AUTO) 1.1 x10^3/uL (0.3-0.8); MONOCYTES % (AUTO) 15.4 % (0.0-13.0); NEUTROPHILS # (AUTO) 4.4 x10^3/uL (2.2-4.8); NEUTROPHILS % (AUTO) 63.8 % (42.0-75.0); PLATELET COUNT 240 X10^3/uL (150.0-450.0); RED BLOOD COUNT 2.44 X10^6/uL (4.7-6.0); RED CELL DISTRIBUTION WIDTH 12.8 % (11.6-16.5); WHITE BLOOD COUNT 6.9 X10^3/uL (3.6-10.0)
[2017-05-26 07:11] LABS: ALANINE AMINOTRANSFERASE 43 Units/L (12-78); ALBUMIN 2.8 g/dL (3.4-5.0); ALKALINE PHOSPHATASE 91 Units/L (46-116); ASPARTATE AMINO TRANSFERASE 57 Units/L (15-37); BLOOD UREA NITROGEN 5 mg/dL (7-18); CARBON DIOXIDE 25.2 mmol/L (21-32); CHLORIDE 100 mmol/L (98-107); CREATININE 0.56 mg/dL (0.70-1.30); SODIUM 137 mmol/L (136-145); TOTAL PROTEIN 7.4 g/dL (6.4-8.2); eGFR BLACK RACES > 60 (>60); eGFR NON BLACK RACES > 60 (>60)
[2017-05-26 07:14] LABS: PLATELET MORPHOLOGY COMMENT NORMAL (NORMAL)
[2017-05-26] MEDS: NS 1000 ML 1,000 ML IV SCH ×3 (08:30→20:28)
[2017-05-26] MEDS: COLACE CAP 100 MG PO SCH ×2 (09:40→20:28)
[2017-05-26] MEDS: PHENOBARBITAL TAB 30 MG (32.4MG) PO SCH (09:41)
[2017-05-26] MEDS: NICOTINE PATCH TD SCH (09:41)
[2017-05-26] MEDS: MILK OF MAGNESIA PO SCH ×2 (09:42→20:27)
[2017-05-26] MEDS ORDERED: LIBRIUM PO PRN (10:50)
[2017-05-26] MEDS ORDERED: SILVADENE ONE (11:22)
[2017-05-26] MEDS ORDERED: SILVADENE TOP NR (12:00)
[2017-05-26] MEDS ORDERED: PHENOBARBITAL TAB 15 MG (16.2MG) PO SCH (13:40)
[2017-05-26] MEDS ORDERED: NS 100 ML IV 100 ML IV ONE (13:50)
[2017-05-26] MEDS: VANCOMYCIN HCL 1 GM VIAL 1 GM in D5W 250 ML IV 250 ML IV SCH ×2 (14:33→22:33)
[2017-05-26] MEDS: THIAMINE HCL INJ IM SCH (14:34)
[2017-05-26] MEDS: ZOSYN VIAL 4.5 GM IV SCH ×2 (16:19→22:32)
[2017-05-26] MEDS ORDERED: NS 100 ML IV + SPIKE MINIBAG* 100 ML IV ONE (20:20)
[2017-05-26] MEDS: PERCOCET TAB 5/325 MG PO PRN (20:27)
[2017-05-27] MEDS ORDERED: NS 100 ML IV + SPIKE MINIBAG* 100 ML IV ONE ×2 (04:24→13:54)
[2017-05-27] MEDS: ZOSYN VIAL 4.5 GM IV SCH ×2 (05:02→14:13)
[2017-05-27 06:43] LABS: BASOPHILS # (AUTO) 0.1 X10^3/uL (0.0-0.1); BASOPHILS % (AUTO) 1.4 % (0.2-1.0); EOSINOPHILS # (AUTO) 0.1 x10^3/uL (0.0-0.2); EOSINOPHILS % (AUTO) 2.6 % (0.9-2.9); HEMATOCRIT 26.3 % (42.0-54.0); HEMOGLOBIN 9.4 g/dL (13.5-18.0); LYMPHOCYTES # (AUTO) 1.4 X10^3/uL (1.3-2.9); LYMPHOCYTES % (AUTO) 25.3 % (21.0-51.0); MEAN CORPUSCULAR HEMOGLOBIN 37.9 pg (27.0-34.0); MEAN CORPUSCULAR VOLUME 105.3 fL (80.0-100.0); MONOCYTES # (AUTO) 0.9 x10^3/uL (0.3-0.8); MONOCYTES % (AUTO) 15.6 % (0.0-13.0); NEUTROPHILS # (AUTO) 3.1 x10^3/uL (2.2-4.8); NEUTROPHILS % (AUTO) 55.1 % (42.0-75.0); PLATELET COUNT 315 X10^3/uL (150.0-450.0); RED BLOOD COUNT 2.49 X10^6/uL (4.7-6.0); RED CELL DISTRIBUTION WIDTH 12.7 % (11.6-16.5); WHITE BLOOD COUNT 5.6 X10^3/uL (3.6-10.0)
[2017-05-27 07:01] LABS: ALANINE AMINOTRANSFERASE 39 Units/L (12-78); ALBUMIN 2.9 g/dL (3.4-5.0); ALKALINE PHOSPHATASE 84 Units/L (46-116); ASPARTATE AMINO TRANSFERASE 50 Units/L (15-37); BLOOD UREA NITROGEN 5 mg/dL (7-18); CALCIUM 8.4 mg/dL (8.5-10.1); CARBON DIOXIDE 27.7 mmol/L (21-32); CHLORIDE 103 mmol/L (98-107); COR CA(FOR HYPOALB) 9.3 mg/dL (8.5-10.1); CREATININE 0.68 mg/dL (0.70-1.30); SODIUM 140 mmol/L (136-145); TOTAL PROTEIN 7.3 g/dL (6.4-8.2); eGFR BLACK RACES > 60 (>60); eGFR NON BLACK RACES > 60 (>60)
[2017-05-27 07:06] LABS: PLATELET MORPHOLOGY COMMENT NORMAL (NORMAL)
[2017-05-27] MEDS: NS 1000 ML 1,000 ML IV SCH ×2 (07:14→07:47)
[2017-05-27] MEDS: ATIVAN INJ 2 MG VIAL IVP SCH (07:49)
[2017-05-27] MEDS: BENADRYL INJ 50 MG VIAL IV SCH (07:50)
[2017-05-27] MEDS: HALDOL INJ IM SCH (07:50)
[2017-05-27] MEDS: VANCOMYCIN HCL 1 GM VIAL 1 GM in D5W 250 ML IV 250 ML IV SCH (09:00)
[2017-05-27] MEDS: MILK OF MAGNESIA PO SCH (09:00)
[2017-05-27] MEDS: PERCOCET TAB 5/325 MG PO PRN ×2 (09:00→14:13)
[2017-05-27] MEDS: COLACE CAP 100 MG PO SCH (09:00)
[2017-05-27] MEDS: NICOTINE PATCH TD SCH (09:00)
[2017-05-27] MEDS: POTASSIUM CHL 40 MEQ/NS 0.45% 500 ML IV PRN (10:28)
--- NOTE | 2017-05-27 10:39 | RAD ---
HISTORY: Follow-up fracture Study: Right ankle AP, lateral, oblique Comparison: 05/19/2017 Findings: There is a healing fracture of the lateral malleolus with lateral displacement and slight posterior d isplacement of the distal fracture fragment. There is an intra-articular fracture of the medial malle olus which demonstrates some dorsal along the fracture line and early healing. It is displaced slight ly caudally. There is a vertical fracture of the posterior malleolus which demonstrate resorption tiffany ng the fracture line but no callus formation. Mild widening of the ankle mortise anteriorly is identi fied. IMPRESSION: Trimalleolar fracture as described Residual widening of the tibiotalar joint anteriorly Reported By:
[2017-05-27 11:57] VITALS: BP 175/82
[2017-05-27] MEDS: MORPHINE SULFATE INJ 2 MG INJ IVP PRN (14:53)
== END 2017-05-27 14:54 | disposition short-term general hospital (02) | DRG 563 ==
LOC: ER 20:55 → MED/SURG 23:40 → OBSVTOIN 05-22 19:15
PROVIDERS: ADMIT Internal Medicine; ATTEND Internal Medicine
PROC: HZ2ZZZZ Detoxification Services for Substance Abuse Treatment (ICD-10-PCS; principal; 2017-05-23)
DX: S82.851A Displaced trimalleolar fracture of right lower leg, initial encounter for closed fracture (principal); S93.01XA Subluxation of right ankle joint, initial encounter; W17.89XA Other fall from one level to another, initial encounter; Y92.89 Other specified places as the place of occurrence of the external cause; I25.10 Atherosclerotic heart disease of native coronary artery without angina pectoris; E11.65 Type 2 diabetes mellitus with hyperglycemia; I10 Essential (primary) hypertension; Z78.1 Physical restraint status; F10.229 Alcohol dependence with intoxication, unspecified; F10.239 Alcohol dependence with withdrawal, unspecified; B96.89 Other specified bacterial agents as the cause of diseases classified elsewhere
CPT/HCPCS: 29505; 36415; 36600; 71045; 73610; 73700; 80053; 80307; 82803; 83735; 84132; 85025; 85610; 85730; 86850; 86900; 86901; 87040; 87070; 87075; 87077; 87186; 87205; 93005; 93010; 94760; 96365; 96372; 96374; 96375; 99284; A4222; S0020; G0378; G6040; J1200; J1630; J1885; J2001; J2060; J2270; J2405; J2543; J2550; J3370; J3411; J3475

== ENCOUNTER 2017-06-01 14:59 | Observation (INO) | payer SELFPAY ==
--- NOTE | 2017-06-01 17:50 | DR.H&P ---
H&P - History & Physical for Day of: H&P Date: 06/01/17 - Chief Complaint Chief Complaint: RLE PAIN - Allergies Allergies/Adverse Reactions: Allergies Allergy/AdvReac Type Severity Reaction Status Date / Time No Known Drug Allergies Allergy Verified 05/19/17 21:11 - History of Present Illness History of Present Illness: 51 HM S/P TRAUMATIC ANKLE FRATURE WITH SURGICAL REPAIR AT [facility]. PT A RETURN TRANSFER. PT HAS EXTERNAL FIXATION DEVICE. PT HAD PMH OF ETOH ABUSE. - Past Medical History Additional Medical History: ALCOHOL ABUSE - Past Surgical History Surgical History: Unknown - Social History Does patient currently use any type of tobacco product: Yes Have you used tobacco products in the last 12 months: Yes Type of Tobacco Use: Cigarettes Does any household member use tobacco: No Alcohol Use: DAILY Drug Use: None - Review of Systems Constitutional: No Symptoms Reported Eyes: No Symptoms Reported ENT: No Symptoms Reported Respiratory: Cough Cardiovascular: No Symptoms Reported Gastrointestinal: No Symptoms Reported Genitourinary: No Symptoms Reported Musculoskeletal: Leg Pain Skin: Wound, Ecchymosis Neurological: No Symptoms Reported - Physical Exam Vital Signs: Temperature 98.6 F Pulse Rate [Right Brachial] 88 Respiratory Rate 20 Blood Pressure [Left Arm] 176/88 Blood Pressure [Right Arm] 147/74 Blood Pressure 175/82 O2 Sat by Pulse Oximetry 98 Oriented: Normal Eyes: Normal Ear: Normal Nose: Normal Throat: Normal Respiratory: RLL Diminished, LLL Diminished Cardiovascular: Normal : Normal Auscultation: Bowel Sounds: Normal Palpation: Normal Tenderness: Normal Skin: Wound Musculoskeletal: Right, Leg, Ankle, Foot Psychiatric: Normal Speech Pattern: Clear, Appropriate - Assessment/Plan (1) Post-operative pain Status: Acute Plan: ADMIT, PAIN CONTROL. ADMISSION LABS CXR, PT/OT CONSULT. CASE MANAGEMENT CONSULT (2) Impaired mobility and personal care Status: Acute (3) Subluxation of ankle joint Status: Acute (4) Trimalleolar fracture of ankle, closed Status: Acute
[2017-06-01 20:30] VITALS: BMI 17.7
[2017-06-01] MEDS ORDERED: ATIVAN TAB 0.5 MG PO PRN (21:37)
[2017-06-01] MEDS ORDERED: MILK OF MAGNESIA PO PRN (21:37)
[2017-06-01] MEDS ORDERED: ULTRAM PO PRN (21:37)
[2017-06-01] MEDS: PERCOCET TAB 5/325 MG PO PRN (22:11)
[2017-06-02] MEDS: PERCOCET TAB 5/325 MG PO PRN ×3 (04:52→16:30)
[2017-06-02 05:14] LABS: BASOPHILS # (AUTO) 0.2 X10^3/uL (0.0-0.1); BASOPHILS % (AUTO) 2.1 % (0.2-1.0); EOSINOPHILS # (AUTO) 0.2 x10^3/uL (0.0-0.2); EOSINOPHILS % (AUTO) 2.6 % (0.9-2.9); HEMATOCRIT 27.3 % (42.0-54.0); HEMOGLOBIN 9.7 g/dL (13.5-18.0); LYMPHOCYTES # (AUTO) 2.2 X10^3/uL (1.3-2.9); LYMPHOCYTES % (AUTO) 25.7 % (21.0-51.0); MEAN CORPUSCULAR HEMOGLOBIN 36.7 pg (27.0-34.0); MEAN CORPUSCULAR HGB CONC 35.5 g/dL (33.0-35.0); MEAN CORPUSCULAR VOLUME 103.5 fL (80.0-100.0); MEAN PLATELET VOLUME 8.2 fL (7.4-11.0); MONOCYTES % (AUTO) 11.6 % (0.0-13.0); NEUTROPHILS # (AUTO) 4.9 x10^3/uL (2.2-4.8); PLATELET COUNT 542 X10^3/uL (150.0-450.0); RED BLOOD COUNT 2.64 X10^6/uL (4.7-6.0); RED CELL DISTRIBUTION WIDTH 12.8 % (11.6-16.5); WHITE BLOOD COUNT 8.4 X10^3/uL (3.6-10.0)
[2017-06-02 05:28] LABS: ALANINE AMINOTRANSFERASE 49 Units/L (12-78); ALBUMIN 2.9 g/dL (3.4-5.0); ALKALINE PHOSPHATASE 93 Units/L (46-116); ASPARTATE AMINO TRANSFERASE 80 Units/L (15-37); BLOOD UREA NITROGEN 9 mg/dL (7-18); CALCIUM 8.9 mg/dL (8.5-10.1); CARBON DIOXIDE 29.2 mmol/L (21-32); CHLORIDE 99 mmol/L (98-107); COR CA(FOR HYPOALB) 9.8 mg/dL (8.5-10.1); COR NA(FOR HYPERGLY) 136 mmol/L (136-145); CREATININE 0.64 mg/dL (0.70-1.30); SODIUM 136 mmol/L (136-145); TOTAL PROTEIN 7.8 g/dL (6.4-8.2); eGFR BLACK RACES > 60 (>60); eGFR NON BLACK RACES > 60 (>60)
[2017-06-02 15:25] VITALS: BP 146/69
[2017-06-02] MEDS ORDERED: COLACE CAP 100 MG PO SCH (21:00)
== END 2017-06-02 16:35 | disposition home or self-care (01) ==
LOC: UNDOADMOB 14:59 → MED/SURG 14:59
PROVIDERS: ADMIT Internal Medicine; ATTEND Internal Medicine
DX: G89.18 Other acute postprocedural pain (principal); F10.20 Alcohol dependence, uncomplicated; R26.81 Unsteadiness on feet; S93.01XA Subluxation of right ankle joint, initial encounter; Z91.81 History of falling; S82.851D Displaced trimalleolar fracture of right lower leg, subsequent encounter for closed fracture with routine healing; W19.XXXD Unspecified fall, subsequent encounter; Y92.9 Unspecified place or not applicable; Z74.1 Need for assistance with personal care; Z86.59 Personal history of other mental and behavioral disorders
CPT/HCPCS: 36415; 80053; 85025; A4216; A4222; G0378